=== PATIENT | female | born 1985 | race Caucasian/White ===

== ENCOUNTER 2024-06-24 00:08 | Emergency (ER) | payer MEDICAID ==
[~2024-06-24] VITALS: Ht 170.2 cm; Wt 100.0 kg
[2024-06-24 00:19] VITALS: TEMP 98.2
[2024-06-24 00:32] LABS: COVID AG,FIA SOURCE NASAL SWAB
[2024-06-24 00:41] LABS: INFLUENZA TYPE A NEGATIVE FOR TYPE A (NEGATIVE); INFLUENZA TYPE B NEGATIVE FOR TYPE B (NEGATIVE)
[2024-06-24 00:49] VITALS: BP 134/73; PULSE 68; RESP 18; O2SAT 98
[2024-06-24 00:58] LABS: SARS-COV2 (COVID) ANTIGEN,FIA Positive (Negative)
[2024-06-24] MEDS: METOCLOPRAMIDE HCL 10 MG TABLET PO ONE (01:43)
[2024-06-24] MEDS: ASPIRIN/ACETAMINOPHEN/CAFFEINE 250-250-65 MG TABLET PO ONE (01:43)
[2024-06-24] MEDS: ACETAMINOPHEN 325 MG TABLET PO ONE (01:44)
== END 2024-06-24 03:21 | disposition home or self-care (01) ==
LOC: EMS 00:28
DX: U07.1 COVID-19 (principal); G43.909 Migraine, unspecified, not intractable, without status migrainosus; F12.90 Cannabis use, unspecified, uncomplicated; M79.7 Fibromyalgia
CPT/HCPCS: 87804; 99284; Z7502; Z7610